=== PATIENT | female | born 2000 | race Two or more races ===

== ENCOUNTER 2019-12-23 10:09 | Emergency (ER) | payer OTHER ==
[~2019-12-23] VITALS: Ht 152.4 cm; Wt 99.8 kg
[2019-12-23 10:15] VITALS: BP 133/67
== END 2019-12-23 12:59 | disposition left against medical advice (07) ==
LOC: ER 10:09
DX: L50.9 Urticaria, unspecified (principal); Z53.21 Procedure and treatment not carried out due to patient leaving prior to being seen by health care provider